=== PATIENT | male | born 1965 | race Caucasian/White ===

== ENCOUNTER 2020-03-06 09:15 | Inpatient (IN) | payer OTHER ==
[~2020-03-06] VITALS: Ht 167.6 cm; Wt 86.2 kg
[2020-03-06] MEDS ORDERED: NEURONTIN600 M1 (09:39)
[2020-03-06] MEDS ORDERED: CELEXA40 MG (09:40)
[2020-03-06] MEDS ORDERED: CLONAZEPAM2 MG (09:40)
[2020-03-06] MEDS ORDERED: PRILOSEC OTC20 MG (09:40)
[2020-03-06] MEDS ORDERED: VITAMIN C WIT1000 MG (09:41)
[2020-03-13] MEDS ORDERED: COLACE100 MG PO (07:21)
[2020-03-13] MEDS ORDERED: PERCOCET 5-3251 EACH PO (07:21)
[2020-03-13] MEDS ORDERED: NEURONTIN800 MG PO (07:21)
[2020-03-13] MEDS ORDERED: DIAZEPAM10 MG PO (07:21)
[2020-03-13] MEDS ORDERED: AMOX-CLAV 875-1 EACH PO (07:21)
[2020-03-13] MEDS ORDERED: MEDROLPACK PO (07:21)
== END 2020-03-14 12:15 | disposition home or self-care (01) | DRG 460 ==
LOC: SURH 03-13 05:00 → O/R 03-13 05:00 → SURH 03-13 09:15
PROVIDERS: ADMIT Orthopaedic Surgery Orthopaedic Surgery of the Spine; ATTEND Orthopaedic Surgery Orthopaedic Surgery of the Spine
PROC: 0SB20ZZ Excision of Lumbar Vertebral Disc, Open Approach (ICD-10-PCS; 2020-03-13)
PROC: 3E0U0GB Introduction of Recombinant Bone Morphogenetic Protein into Joints, Open Approach (ICD-10-PCS; 2020-03-13)
PROC: 0SG0071 Fusion of Lumbar Vertebral Joint with Autologous Tissue Substitute, Posterior Approach, Posterior Column, Open Approach (ICD-10-PCS; principal; 2020-03-13 09:45)
DX: M48.062 Spinal stenosis, lumbar region with neurogenic claudication (principal); M51.36 Other intervertebral disc degeneration, lumbar region